=== PATIENT | male | born 1940 | race Caucasian/White ===

== ENCOUNTER 2021-11-14 05:59 | Day surgery (SDC) | payer MEDICARE ==
[2021-11-08 12:40] LABS: BASOPHILS % (AUTO) 0.4 % (0.0-5.0); EOSINOPHILS % (AUTO) 1.3 % (0.0-8.0); HEMATOCRIT 38.3 % (42-54); LYMPHOCYTES % (AUTO) 23.8 % (21.0-51.0); MEAN CORPUSCULAR HEMOGLOBIN 29.8 pg (27.0-33.0); MEAN CORPUSCULAR HGB CONC 33.4 g/dL (32.0-36.0); MEAN CORPUSCULAR VOLUME 89.1 fL (79-99); MONOCYTES % (AUTO) 7.3 % (3.0-13.0); NEUTROPHILS % (AUTO) 66.9 % (40.0-77.0); PLATELET COUNT (AUTO) 195 K/uL (130-400); RED CELL DISTRIBUTION WIDTH 11.7 % (11.0-15.5); WHITE BLOOD COUNT (AUTO) 6.7 K/uL (4.8-10.8)
[2021-11-08 12:51] LABS: CREATININE 1.1 mg/dL (0.5-1.5); POTASSIUM 3.8 mmol/L (3.5-5.1)
[2021-11-08 12:53] LABS: PROTHROMBIN TIME 10.9 SEC (9.6-11.6)
[2021-11-08 12:55] LABS: PARTIAL THROMBOPLASTIN TIME 27.1 SEC (26.3-35.5)
[2021-11-08 14:32] LABS: APPEARANCE,URINE CLOUDY (CLEAR); BILIRUBIN,URINE NEGATIVE (NEGATIVE); COLOR,URINE YELLOW (YELLOW); GLUCOSE, URINE (UA) NEGATIVE (NEGATIVE); KETONES,URINE NEGATIVE (NEGATIVE); LEUKOCYTE ESTERASE ,URINE LARGE (NEGATIVE); NITRATE,URINE POSITIVE (NEGATIVE); OCCULT BLOOD,URINE SMALL (NEGATIVE); PH,URINE 6.5 (5.0-8.0); PROTEIN,URINE TRACE mg/dL (NEGATIVE); UROBILINOGEN,URINE 0.2 mg/dL (0.2-1.0)
[2021-11-08 14:57] LABS: AMORPHOUS SEDIMENT,UR Rare /LPF (None Seen); BACTERIA,URINE Few /HPF (None Seen); CALCIUM OXALATE CRYSTALS,UR Few /LPF (None Seen); WBC,URINE 26-50 /HPF (0-1)
[2021-11-12 10:30] VITALS: BP 129/67
[~2021-11-14] VITALS: Ht 180.3 cm; Wt 71.8 kg
[2021-11-14] VITALS (20 sets, daily range): BP systolic 126–154; BP diastolic 66–84
[~2021-11-14 05:59] MED LIST: ACET-2743 PO; ATOR-2 PO; CEFTRIAXONE 1G VIAL IVP SCH; DUTA.5 PO; GENTAMICIN 80 MG/NS 100 ML PB 100 ML IV SCH; INDA2.5T5 PO; LISI40TA9 PO; OMEG-125 PO; TAMS-1 PO; levaquin PO
[2021-11-14] MEDS ORDERED: LACTATED RINGERS 1000ML 1,000 ML IV ONE (08:03)
[2021-11-14] MEDS ORDERED: LEVOFLOXACIN 500 MG/D5W 100 ML 0 ML ONE (08:52)
[2021-11-14] MEDS ORDERED: PROPOFOL 10 MG/ML 20ML VIAL IV ONE (10:28)
[2021-11-14] MEDS ORDERED: GLYCOPYRROLATE 1 MG/5 ML SYRINGE ONE ×2 (10:28→12:51)
[2021-11-14] MEDS ORDERED: FENTANYL CITRATE PF 50 MCG/1 ML 2ML VIAL ONE (10:29)
[2021-11-14] MEDS ORDERED: ROCURONIUM 10MG/1ML SYR 10 MG/ML ML ONE ×2 (10:29→11:37)
[2021-11-14] MEDS ORDERED: LIDOCAINE HCL MPF 1% 5ML VIAL ONE (10:32)
[2021-11-14] MEDS ORDERED: NEOSTIGMINE 5MG/5ML SYR IV ONE (12:36)
[2021-11-14] MEDS ORDERED: ONDANSETRON 4MG INJ ONE (12:47)
[2021-11-14] MEDS ORDERED: MEPERIDINE-PF 25 MG/ML SYG ONE (14:29)
== END 2021-11-14 15:50 | disposition home or self-care (01) ==
LOC: DAH 05:59
PROVIDERS: ATTEND Urology
DX: N40.1 Benign prostatic hyperplasia with lower urinary tract symptoms (principal); N21.0 Calculus in bladder; R33.8 Other retention of urine; N41.1 Chronic prostatitis; I10 Essential (primary) hypertension; I25.2 Old myocardial infarction; M19.90 Unspecified osteoarthritis, unspecified site; E78.5 Hyperlipidemia, unspecified; Z79.01 Long term (current) use of anticoagulants; Z79.899 Other long term (current) drug therapy; Z95.1 Presence of aortocoronary bypass graft; Z98.890 Other specified postprocedural states; Z86.73 Personal history of transient ischemic attack (TIA), and cerebral infarction without residual deficits
CPT/HCPCS: 80048; 85025; 85610; 85730; 87077; 87088; 87186; 87426; 81001; 36415 ×2; 71045; 93005 ×2; 52648; 52317; 82360; A6260; J7030; C1758; A4354; J7120; J3010; J3490 ×3; J2710; J2704; J2405; J2175; J1580; A4358; A4930; A4215; A4222; A4221; A4663; A4223 ×2; A4600; J0696; J1956

== ENCOUNTER → 2022-02-26 | Outpatient (CLI) | payer MEDICARE ==
[~2022-02-26] MED LIST changes: -CEFTRIAXONE 1G VIAL IVP SCH; -GENTAMICIN 80 MG/NS 100 ML PB 100 ML IV SCH
== END | disposition home or self-care (01) ==
LOC: RAH 15:32
PROVIDERS: ATTEND Internal Medicine
DX: F03.90 Unspecified dementia, unspecified severity, without behavioral disturbance, psychotic disturbance, mood disturbance, and anxiety (principal)
CPT/HCPCS: 70450